=== PATIENT | female | born 1945 | race Caucasian/White ===

== ENCOUNTER 2016-11-14 12:37 | Inpatient (IN) | payer OTHER, MEDICARE ==
[~2016-11-14] VITALS: Ht 154.9 cm; Wt 57.7 kg
[~2016-11-14 12:37] MED LIST: ASPI-496 PO; CALC400T40 PO; CHOL100011 PO; DOCU100T6 PO; HYDR2TAB13 PO; KRILL OIL PO; L. R1CAP PO; MOEX15TA2; MOEX15TA2 PO; TUMERIC PO; VIT1TABL32 PO; VITAFUSION FIBER PO
[2016-11-14 14:30] VITALS: BP 163/83
[2016-11-14] MEDS ORDERED: LACTATED RINGERS 1,000 ML IV SCH (14:32)
[2016-11-14] MEDS ORDERED: BUPIVACAINE/PF-EPI 0.25% 1:200K ONE (15:29)
[2016-11-14] MEDS ORDERED: FENTANYL PF 250 MCG/5ML ONE (15:29)
[2016-11-14] MEDS ORDERED: MIDAZOLAM 1 MG/ML, 2ML ONE (15:29)
[2016-11-14] MEDS ORDERED: BUPIVACAINE/PF-EPI 0.5% 1:200K ONE (15:32)
[2016-11-14 15:52] LABS: ASPARTATE AMINO TRANSFERASE 21 U/L (15-37); BLOOD UREA NITROGEN 12 mg/dL (7-18)
[2016-11-14] MEDS ORDERED: GLYCOPYRROLATE 0.2MG/1ML ONE (16:40)
[2016-11-14] MEDS ORDERED: PHENYLEPHRINE 10 MG/ML ONE (16:40)
[2016-11-14] MEDS ORDERED: EPHEDRINE 50 MG/ML, 1ML ONE (16:40)
[2016-11-14] MEDS ORDERED: CEFAZOLIN 1,000 MG ONE (16:40)
[2016-11-14] MEDS ORDERED: ONDANSETRON 2MG/ML, 2ML ONE (16:40)
[2016-11-14] MEDS ORDERED: SUCCINYLCHOLINE 20 MG/ML, 10ML ONE (16:40)
[2016-11-14] MEDS ORDERED: PROPOFOL 10 MG/ML, 20ML ONE (16:40)
[2016-11-14] MEDS ORDERED: DEXAMETHASONE 4 MG/ML, 5ML ONE (16:40)
[2016-11-14] MEDS ORDERED: METOCLOPRAMIDE 5 MG/ML, 2ML IV PRN (17:30)
[2016-11-14] MEDS ORDERED: ACETAMINOPHEN 325 MG TABLET PO PRN (17:30)
[2016-11-14] MEDS ORDERED: HYDROmorphone 1 MG/ML, 1ML IV PRN (17:30)
[2016-11-14] MEDS ORDERED: ONDANSETRON 2MG/ML, 2ML IVPush PRN (17:30)
[2016-11-14] MEDS ORDERED: EPHEDRINE 50 MG/ML, 1ML IVPush PRN (17:30)
[2016-11-14] MEDS ORDERED: METOPROLOL 1 MG/ML, 5ML IV PRN (17:30)
[2016-11-14] MEDS ORDERED: FENTANYL PF 100 MCG/2ML IV PRN (17:30)
[2016-11-14] MEDS ORDERED: LABETALOL 5MG/ML, 20ML IV PRN (17:30)
[2016-11-14] MEDS ORDERED: OXYcodone 5 MG/5 ML ORAL.SOL UDC PO PRN (17:30)
[2016-11-14] MEDS ORDERED: PROMETHAZINE 25 MG/ML, 1ML IV PRN (17:30)
[2016-11-14] MEDS ORDERED: hydrALAzine 20 MG/ML, 1ML IV PRN (17:30)
[2016-11-14] MEDS ORDERED: OXYcodone 5 MG/5 ML ORAL.SOL UDC ONE (19:22)
[2016-11-14 20:11] VITALS: BP 108/70
[2016-11-14] MEDS ORDERED: ONDANSETRON 2MG/ML, 2ML IV PRN (20:30)
[2016-11-14] MEDS ORDERED: morphine SULFATE 10 MG/ML, 1ML IV PRN (20:30)
[2016-11-14] MEDS ORDERED: [UNRECOGNIZED DRUG - OTHER] HOMEMEDPO SCH (21:00)
[2016-11-14] MEDS: DOCUSATE 100 MG CAPSULE PO SCH (21:59)
[2016-11-14] MEDS: POTASSIUM CHLORIDE 40 MEQ in D5%-0.45% NACL 1,000 ML IV SCH (21:59)
[2016-11-15] MEDS: CEFAZOLIN PMX 1GM/50ML 50 ML IVPB SCH ×2 (01:14→08:30)
[2016-11-15 03:00] VITALS: BP 104/65
[2016-11-15] MEDS: OXYcodone/APAP 5/325MG TABLET PO PRN ×3 (03:59→12:57)
[2016-11-15 07:34] VITALS: BP 110/66
[2016-11-15] MEDS: DOCUSATE 100 MG CAPSULE PO SCH (07:54)
[2016-11-15] MEDS: POTASSIUM CHLORIDE 40 MEQ in D5%-0.45% NACL 1,000 ML IV SCH (08:30)
[2016-11-15] MEDS ORDERED: KRILL OIL HOMEMEDPO SCH (09:00)
[2016-11-15] MEDS ORDERED: MOEXIPRIL HCL 15 MG HOMEMEDPO SCH (09:00)
[2016-11-15] MEDS ORDERED: CHOLECALCIFEROL 1,000 UNIT TABLET PO SCH (09:00)
[2016-11-15] MEDS ORDERED: TUMERIC HOMEMEDPO SCH (09:00)
[2016-11-15] MEDS ORDERED: OCUVITE HOMEMEDPO SCH (09:00)
[2016-11-15 12:53] VITALS: BP 130/69
[2016-11-15] MEDS ORDERED: ONDA4TAB7 PO (15:46)
[2016-11-15] MEDS ORDERED: OXYC5TAB3 PO (15:47)
== END 2016-11-15 16:00 | disposition home or self-care (01) | DRG 483 ==
LOC: ORIP 13:52 → 4NOR 19:44 → DCLOUNGE 11-15 15:30
PROVIDERS: ADMIT Orthopaedic Surgery; ATTEND Orthopaedic Surgery
PROC: 0RRK00Z Replacement of Left Shoulder Joint with Reverse Ball and Socket Synthetic Substitute, Open Approach (ICD-10-PCS; principal; 2016-11-15)
PROC: 3E0T3BZ Introduction of Anesthetic Agent into Peripheral Nerves and Plexi, Percutaneous Approach (ICD-10-PCS; 2016-11-15)
DX: M19.012 Primary osteoarthritis, left shoulder (principal); I10 Essential (primary) hypertension; F17.210 Nicotine dependence, cigarettes, uncomplicated
CPT/HCPCS: 36415; 80053; 93005; C1713; C1776; J0690; J1100; J2250; J2405; J2704; J3010; J3480; J3490; J0330; J2370

== ENCOUNTER → 2017-07-27 | Outpatient (CLI) | payer OTHER, MEDICARE ==
[~2017-07-27] MED LIST changes: -HYDR2TAB13 PO; +HYDR2TAB29 PO; -L. R1CAP PO; +LACT1CAP61 PO; +ONDA4TAB7 PO; +OXYC5TAB3 PO
== END | disposition home or self-care (01) ==
LOC: CFH 07:03
PROVIDERS: ATTEND Family Medicine
DX: Z12.31 Encounter for screening mammogram for malignant neoplasm of breast (principal)
CPT/HCPCS: 77063; G0202

== ENCOUNTER 2018-06-09 03:30 | Emergency (ER) | payer OTHER, MEDICARE ==
[~2018-06-09] VITALS: Ht 154.9 cm; Wt 61.6 kg
[2018-06-09 05:32] VITALS: BP 144/81
== END 2018-06-09 05:34 | disposition home or self-care (01) ==
LOC: ED 05:09
DX: M19.011 Primary osteoarthritis, right shoulder (principal)
CPT/HCPCS: 93005; 99284

== ENCOUNTER → 2018-07-04 | Outpatient (CLI) | payer OTHER, MEDICARE ==
[~2018-07-04] MED LIST changes: +ASCO10004 PO; +CALCIUM PO; +VITAMIN D3 PO
== END | disposition home or self-care (01) ==
LOC: STAR 08:25
PROVIDERS: ATTEND Orthopaedic Surgery
DX: Z02.9 Encounter for administrative examinations, unspecified (principal)

== ENCOUNTER 2018-07-16 09:27 | Inpatient (IN) | payer OTHER, MEDICARE ==
[~2018-07-16] VITALS: Ht 154.9 cm; Wt 61.5 kg
[2018-07-16 17:15] VITALS: BP 163/91
[2018-07-16] MEDS ORDERED: MIDAZOLAM 1 MG/ML, 2ML ONE (17:35)
[2018-07-16] MEDS ORDERED: FENTANYL PF 100 MCG/2ML ONE (17:35)
[2018-07-16] MEDS ORDERED: TRANEXAMIC ACID 100 MG/ML, 10ML ONE (18:08)
[2018-07-16] MEDS ORDERED: CLINDAMYCIN 150 MG/ML, 6ML ONE (18:09)
[2018-07-16] MEDS ORDERED: EPHEDRINE 50 MG/ML, 1ML ONE (18:41)
[2018-07-16] MEDS ORDERED: HYDROmorphone 1 MG/ML, 1ML IV PRN ×2 (19:30→21:30)
[2018-07-16] MEDS ORDERED: ALBUTEROL/IPRATROPIUM 2.5MG/0.5MG, 3 ML NPPB PRN (19:30)
[2018-07-16] MEDS ORDERED: ONDANSETRON 2MG/ML, 2ML IV PRN ×2 (19:30→21:30)
[2018-07-16] MEDS ORDERED: ACETAMINOPHEN 325 MG TABLET PO PRN (19:30)
[2018-07-16] MEDS ORDERED: PROMETHAZINE 25 MG/ML, 1ML IV PRN (19:30)
[2018-07-16] MEDS ORDERED: MIDAZOLAM 1 MG/ML, 2ML IV PRN (19:30)
[2018-07-16] MEDS ORDERED: MEPERIDINE/PF 25MG/0.5ML IVPush PRN (19:30)
[2018-07-16] MEDS ORDERED: LABETALOL 5MG/ML, 20ML IV PRN (19:30)
[2018-07-16] MEDS ORDERED: FENTANYL PF 100 MCG/2ML IV PRN (19:30)
[2018-07-16] MEDS ORDERED: hydrALAzine 20 MG/ML, 1ML IV PRN (19:30)
[2018-07-16] MEDS ORDERED: OXYcodone 5 MG/5 ML ORAL.SOL UDC PO PRN (19:30)
[2018-07-16] MEDS ORDERED: KETOROLAC 30 MG/1 ML IV PRN (19:30)
[2018-07-16] MEDS ORDERED: BUPIVACAINE/PF 0.5% ONE ×3 (19:33)
[2018-07-16] MEDS ORDERED: PROPOFOL 10 MG/ML, 20ML ONE (19:34)
[2018-07-16] MEDS ORDERED: GLYCOPYRROLATE 0.2MG/1ML, 5ML ONE (19:34)
[2018-07-16] MEDS ORDERED: ROCURONIUM 10MG/ML,5ML ONE (19:34)
[2018-07-16] MEDS ORDERED: SUCCINYLCHOLINE 20 MG/ML, 10ML ONE (19:34)
[2018-07-16] MEDS ORDERED: ONDANSETRON 2MG/ML, 2ML ONE (19:34)
[2018-07-16] MEDS ORDERED: DEXAMETHASONE 4 MG/ML, 1ML ONE (19:34)
[2018-07-16] MEDS ORDERED: NEOSTIGMINE 1 MG/ML, 10ML ONE (19:34)
[2018-07-16] MEDS ORDERED: LIDOCAINE-MPF 2% ,5ML ONE (19:34)
[2018-07-16] MEDS ORDERED: CEFAZOLIN 1,000 MG ONE (19:34)
[2018-07-16 21:05] VITALS: BP 129/62
[2018-07-16] MEDS ORDERED: D5%-0.45NACL+KCL 40MEQ 1,000 ML IV SCH (21:30)
[2018-07-17 00:05] VITALS: BP 114/46
[2018-07-17] MEDS: OXYcodone/APAP 5/325MG TABLET PO PRN ×3 (02:00→11:07)
[2018-07-17] MEDS: CEFAZOLIN PMX 1GM/50ML 50 ML IVPB SCH ×2 (03:25→11:08)
[2018-07-17 03:55] VITALS: BP 114/50
[2018-07-17 07:50] VITALS: BP 144/72
[2018-07-17 12:21] VITALS: BP 142/66
[2018-07-17] MEDS ORDERED: OXYC-293 PO (13:29)
== END 2018-07-17 14:00 | disposition home or self-care (01) | DRG 483 ==
LOC: 4NOR 16:50 → DCLOUNGE 07-17 13:42
PROVIDERS: ADMIT Orthopaedic Surgery; ATTEND Orthopaedic Surgery
PROC: 0RRJ00Z Replacement of Right Shoulder Joint with Reverse Ball and Socket Synthetic Substitute, Open Approach (ICD-10-PCS; principal; 2018-07-16 19:00)
DX: M19.011 Primary osteoarthritis, right shoulder (principal); I10 Essential (primary) hypertension; M75.101 Unspecified rotator cuff tear or rupture of right shoulder, not specified as traumatic; F17.210 Nicotine dependence, cigarettes, uncomplicated
CPT/HCPCS: 73020; J3490; S0077; C1713; C1776; G0378; J0690; J1100; J2250; J2405; J2704; J2710; J3010; J0330; J3480

== ENCOUNTER → 2020-06-03 | Outpatient (CLI) | payer OTHER, MEDICARE ==
[~2020-06-03] MED LIST changes: +ASCO100018 PO; -ASCO10004 PO; +OXYC-293 PO
== END | disposition home or self-care (01) ==
LOC: CFH 07:04
PROVIDERS: ATTEND Family Medicine
DX: Z12.31 Encounter for screening mammogram for malignant neoplasm of breast (principal)
CPT/HCPCS: 77063; 77067